=== PATIENT | male | born 1950 | race Caucasian/White ===

== ENCOUNTER → 2017-02-06 | Day surgery (SDC) | payer OTHER ==
[~2017-02-06] VITALS: Ht 188 cm; Wt 119.6 kg
[~2017-02-06] MED LIST: ACETAMINOPHEN 500 MG CPLT PO PRN; ATROPINE SULFATE 1% OPHT SOLN 2 ML BTL ONE; BALANCED SALT SOLN OPHT IRRIG 15 ML BTL ONE; CHLORHEXIDINE GLUCONATE 2 % 1 PACK (2 CLOTHS) TOPICAL PRN; CYCLOPENTOLATE HCL 1% OPHT SOLN 2 ML BTL ONE; DEXAMETHASONE SOD PHOS 4 MG/ML VIAL ONE; DO NOT ADM ANY ANTICOAGULANT DRUGS PRN; EPINEPHrine HCL (1:1000) 1 MG/ML VIAL ONE; FAMOTIDINE 20 MG/2 ML VIAL ONE; HYDR25TA5 PO; INSULIN HUMAN REGULAR 1,000 UNITS/10 ML VIAL SQ PRN; LACTATED RINGER'S 1000 ML INJ 1,000 ML IV ONE; LACTATED RINGER'S 1000 ML IV PRN; LISI-515 PO; METOPROLOL TARTRATE 25 MG TAB PO PRN; MIDAZOLAM HCL 2 MG/2 ML VIAL ONE; ONDANSETRON HCL 4 MG/2 ML VIAL IM PRN; ONDANSETRON HCL 4 MG/2 ML VIAL IV PUSH ONE; PHENYLEPHRINE HCL 2.5% OPTH SOLN 2 ML BTL ONE; POVIDONE IODINE 5% (ANTISEPSIS KIT) 4 APPLICATIONS EACH NARE PRN; PROPOFOL 200 MG/20 ML AMP IV ONE; SODIUM CHLORID 0.9% 500 ML IV PRN; STERILE WATER FOR INJ 20 ML VIAL ONE; TOBRAMYCIN/DEXAMETHASONE OPTH OINT 3.5 GM TUBE ONE; TRIAMCINOLONE ACETONIDE/PF 40 MG/ML OPTH VIAL ONE; TROPICAMIDE 1% OPHT SOLN 15 ML BTL ONE; VIAG50TA PO; ceFAZolin INJ 1,000 MG VIAL ONE; ePHEDrine/NS 25 MG/5 ML SYR IV ONE; oxyCODONE/ACETAMINOPHEN 5 MG/325 MG TAB PO PRN
[2017-02-06 08:23] LABS: AUTOMATED NEUTROPHIL # 3.8 TH/MM3 (1.8-7.7); BASOPHIL % 0.7 % (0.0-2.0); EOSINOPHIL # 0.1 TH/MM3 (0-0.4); EOSINOPHIL % 1.5 % (0.0-4.0); HEMATOCRIT 40.8 % (39.0-51.0); HEMO FLAGS DIFF FINAL; LYMPH % 23.4 % (9.0-44.0); LYMPHOCYTE # 1.4 TH/MM3 (1.0-4.8); MEAN CELL VOLUME 86.7 FL (80.0-100.0); MEAN CORPUSCULAR HEMOGLOBIN 29.8 PG (27.0-34.0); MEAN CORPUSCULAR HGB CONC 34.4 % (32.0-36.0); MONO % 8.2 % (0.0-8.0); NEUT % 66.2 % (16.0-70.0); PLATELET COUNT 151 TH/MM3 (150-450); RED BLOOD COUNT 4.71 MIL/MM3 (4.50-5.90); RED CELL DISTRIBUTION WIDTH 13.7 % (11.6-17.2); WHITE BLOOD COUNT 5.8 TH/MM3 (4.0-11.0)
[2017-02-06 08:30] VITALS: BP 143/64; PULSE 62; RESP 20; TEMP 98.7; O2SAT 100
[2017-02-06] MEDS: PHENYLEPHRINE HCL 2.5% OPTH SOLN 2 ML BTL LEFT EYE SCH ×2 (08:55→09:10)
[2017-02-06] MEDS: ATROPINE SULFATE 1% OPHT SOLN 5 ML BTL LEFT EYE SCH ×2 (08:55→09:10)
[2017-02-06] MEDS: TROPICAMIDE 1% OPHT SOLN 15 ML BTL LEFT EYE SCH ×2 (08:55→09:10)
[2017-02-06] MEDS: CYCLOPENTOLATE HCL 1% OPHT SOLN 2 ML BTL LEFT EYE SCH ×2 (08:55→09:10)
[2017-02-06 13:05] VITALS: BP 142/73; PULSE 65; RESP 20; TEMP 97.3; O2SAT 97
--- NOTE | 2017-02-06 15:07 | EKG ---
Date Performed: 02/06/2017 Time Performed: 08:01:46 PTAGE: 66 years EKG: SINUS BRADYCARDIA BORDERLINE ECG NO PREVIOUS TRACING DOCTOR: Rosana Duque Interpretating Date/Time 02/06/2017 14:59:50
--- NOTE | 2017-02-07 13:38 | MP ---
cc: LOS NEGRON M.D. DATE OF SURGERY: 02/07/2017 PREOPERATIVE DIAGNOSIS: Non clearing vitreous hemorrhage left eye. POSTOPERATIVE DIAGNOSIS: Non clearing vitreous hemorrhage left eye with a retinal tear and localized retinal detachment. SURGEON: Los Negron MD. ANESTHESIA: General laryngeal mask anesthesia. INDICATIONS FOR THE PROCEDURE: Mr. Walls is a 66-year-old gentleman with a history of intermittent hemorrhaging resulting in a non clearing vitreous hemorrhage which began back in August. The patient wishes to proceed electively with removal of the vitreous hemorrhage and treatment of any underlying etiology. A preop B scan was done and shows no retinal detachment posteriorly. The risks and benefits of surgery were discussed with the patient. Informed consent was obtained. No guarantee was made as to visual outcome. DESCRIPTION OF THE PROCEDURE IN DETAIL: He was brought to [facility] Operating Room #1 and placed on the operating table. Appropriate anesthesia monitoring devices were applied and he was placed under general anesthesia using a laryngeal mask. The left eye was identified as the operative site and then prepped and draped in the usual sterile fashion. A lid speculum was placed. The microscope was brought around and adjusted. At this time, an appropriate time-out was called with the surgical team agreeing to the surgical procedure and surgical site. Using the Remy 23-gauge vitrectomy system, the trocar cannulas were placed 3.5 mm posterior to the limbus after first displacing the conjunctiva and with a beveled entrance. The first one was placed at approximately 3 o'clock and verified to be in the posterior chamber. An infusion cannula was affixed to it and it was turned on. Two additional trocar cannulas were placed at 10 at 2 o'clock in similar fashion. The eye was entered with the endoilluminator light pipe and vitrectomy cutter and using the flat contact lens, a core vitrectomy was carried out. The flat contact lens was then switched for the BIOM wide angle viewing system and the peripheral vitreous was removed with the aid of scleral depression. Hemorrhage on the posterior pole surface was vacuumed off with a linear extrusion needle. The retinal break was between 10 and 11 o'clock appeared to have a bridging vessel. The flap was amputated without further bleeding. Next using the laser indirect delivery system, peripheral retinal laser was scattered. Then using the lighted laser probe, the retinal break and fluid was surrounded by laser. A total of 1638 laser spots were placed with a power of 200-500 milliwatts depending on the method of delivery and 0.1-second exposure. An air-fluid exchange was then performed using the soft tipped linear extrusion needle after which the trocar cannulas were removed one by one with diathermy to the overlying conjunctival wound. Atropine drops were placed on the cornea and then subconjunctival actions of Ancef 125 mg in 0.5 cc and Decadron 2 mg in 0.5 cc were given at separate sites. The eye was left formed and soft. The lid speculum was removed. The patient was undraped. TobraDex ointment was placed on the cornea and then the left eye was patched and shielded. The patient had the laryngeal mass removed in the room and was returned to recovery in good condition laying on his right side. He will be seen in the morning at 8 o'clock. MD TWILA Mckeon/NILDA /11:47 AM /1:34 PM
== END | disposition home or self-care (01) ==
LOC: HSDC 07:39
PROVIDERS: ATTEND Ophthalmology
DX: H43.12 Vitreous hemorrhage, left eye (principal); H33.302 Unspecified retinal break, left eye; I10 Essential (primary) hypertension; Z79.899 Other long term (current) drug therapy
CPT/HCPCS: 00145; 67025; 67036; 85025; 93005; J0171; J0690; J1100; J2250; J2405; J3010; J7120; J3300